=== PATIENT | female | born 1960 | race African-American/Black ===

== ENCOUNTER 2021-08-11 15:48 | Emergency (ER) | payer MEDICARE, MEDICAID ==
[~2021-08-11] VITALS: Ht 162.6 cm; Wt 85.0 kg
[2021-08-11 16:01] VITALS: BP 142/82
[2021-08-11] MEDS ORDERED: ACETAMINOPHEN 325MG TABLET PO ONE (16:45)
[2021-08-11] MEDS ORDERED: TETANUS, DIPHTHERIA, PERTUSSIS VAC/PF 0.5ML (>10YR OLD) IM ONE (16:45)
[2021-08-11] MEDS ORDERED: ACET-2708 MT (17:55)
== END 2021-08-11 18:46 | disposition home or self-care (01) ==
LOC: ER 15:48
DX: S00.211A Abrasion of right eyelid and periocular area, initial encounter (principal); M25.562 Pain in left knee; M25.561 Pain in right knee; R03.0 Elevated blood-pressure reading, without diagnosis of hypertension; G40.909 Epilepsy, unspecified, not intractable, without status epilepticus; W01.198A Fall on same level from slipping, tripping and stumbling with subsequent striking against other object, initial encounter; Y93.89 Activity, other specified; Y92.89 Other specified places as the place of occurrence of the external cause; Y99.0 Civilian activity done for income or pay
CPT/HCPCS: 73560; 90471; 90715; 99284